=== PATIENT | female | born 1945 ===

== ENCOUNTER → 2016-10-27 | Outpatient (CLI) | payer OTHER, BC | LOC: BHFA 10:00 | PROVIDERS: ATTEND Internal Medicine Cardiovascular Disease | DX: R06.02 Shortness of breath (principal) ==

== ENCOUNTER → 2017-11-29 | Outpatient (CLI) | payer OTHER, BC | LOC: BHFA 09:15 | PROVIDERS: ATTEND Internal Medicine Cardiovascular Disease | DX: I25.10 Atherosclerotic heart disease of native coronary artery without angina pectoris (principal) | CPT/HCPCS: 93306-PO ==